=== PATIENT | female | born 1955 | race Two or more races ===

== ENCOUNTER 2024-06-10 16:16 | Inpatient (IN) | payer OTHER ==
[~2024-06-10] VITALS: Ht 165.1 cm; Wt 63.5 kg
[2024-06-10] MEDS ORDERED: CHILDREN'S ASPI81 MG (16:24)
[2024-06-10 17:00] LABS: HEMATOCRIT 41.3 % (36.0-45.00); HEMOGLOBIN 14.4 g/dL (12.0-15.00); MEAN CORPUSCULAR HEMOGLOBIN 31.1 pg (27.00-32.0); PLATELET COUNT 211 K/uL (150-450); RED BLOOD COUNT 4.64 M/uL (4.00-6.00)
[2024-06-10] MEDS ORDERED: MINERAL OIL 30 ML BLIST.PACK PO ONE (17:00)
[2024-06-10] MEDS ORDERED: LACTULOSE 20 G/30 ML BLIST.PACK PO ONE (17:00)
[2024-06-10] MEDS ORDERED: MAGNESIUM HYDROXIDE 30 ML BLIST.PACK PO ONE (17:00)
[2024-06-10 17:30] LABS: CALCIUM 9.7 mg/dL (8.5-10.1); CREATININE SERUM 0.9 mg/dL (0.55-1.02); GFR 62.45; POTASSIUM 3.91 mEq/L (3.5-5.1)
[2024-06-10 20:51] LABS: INR 1.04; PARTIAL THROMBOPLASTIN TIME 27.3 SECONDS (22.0-34.0); PROTHROMBIN TIME 11.3 SECONDS (9.0-11.5)
[2024-06-10] MEDS ORDERED: 0.9 % SODIUM CHLORIDE 1,000 ML IV SCH (22:15)
[2024-06-10] MEDS ORDERED: ACETAMINOPHEN 500 MG GEL..CAP PO PRN (22:30)
[2024-06-10] MEDS ORDERED: MEPERIDINE HCL/PF 25 MG/ML VIAL IM PRN (22:30)
[2024-06-10] MEDS ORDERED: ONDANSETRON HCL 4 MG in 0.9 % SODIUM CHLORIDE 50 ML IV PRN (22:30)
[2024-06-10 23:00] VITALS: BP 133/72; O2SAT 99
[2024-06-11 00:40] VITALS: BP 133/72
[2024-06-11 00:42] LABS: URINE APPEARANCE Clear; URINE BILIRRUBIN Negative (NEGATIVE); URINE BLOOD Trace; URINE COLOR Yellow; URINE GLUCOSE Negative (NEGATIVE); URINE KETONE Negative (NEGATIVE); URINE LEUKOCYTE Small; URINE NITRATE Negative; URINE PROTEIN Negative (NEGATIVE); URINE UROBILINOGEN 0.2 E.U./dl
[2024-06-11 00:46] LABS: URINE BACTERIA 40.2 uL (0.0-1933); URINE RBC 9.4 uL (0.0-20.8); URINE WBC 9.2 uL (0.0-23.2)
[2024-06-11 02:20] VITALS: BP 141/76; O2SAT 100
[2024-06-11] MEDS ORDERED: MINERAL OIL 133 ML ENEMA RECTAL NR (07:30)
[2024-06-11 08:23] VITALS: BP 147/67; O2SAT 100
[2024-06-11] MEDS ORDERED: FAMOTIDINE/PF 20 MG in 0.9 % SODIUM CHLORIDE 8 ML IV PUSH SCH (09:00)
[2024-06-11] MEDS ORDERED: fentaNYL CITRATE 50 MCG/ML AMPUL IV ONE (11:45)
[2024-06-11] MEDS ORDERED: MIDAZOLAM HCL 2 MG/2 ML VIAL IV ONE (11:45)
[2024-06-11] MEDS ORDERED: DIPHENHYDRAMINE HCL 50 MG/ML VIAL 1ML IV NR (12:00)
[2024-06-11 16:53] VITALS: BP 120/54; O2SAT 96
[2024-06-12 00:32] VITALS: BP 123/58; O2SAT 97
[2024-06-12 07:30] VITALS: BP 139/65; O2SAT 100
[2024-06-12] MEDS ORDERED: METRONIDAZOLE500 MG PO (08:04)
[2024-06-12] MEDS ORDERED: CIPRO500 MG PO (08:04)
[2024-06-12] MEDS ORDERED: PEPCID AC20 MG PO (08:05)
[2024-06-12] MEDS ORDERED: CIPROFLOXACIN IN 5 % DEXTROSE 200 ML IV SCH (09:00)
[2024-06-12] MEDS ORDERED: METRONIDAZOLE/SODIUM CHLORIDE 100 ML IV SCH (09:00)
== END 2024-06-12 13:16 | disposition home or self-care (01) | DRG 390 ==
LOC: ER 16:17 → SURG 22:18
PROVIDERS: General Practice; ADMIT Surgery; ATTEND Surgery
PROC: 0DJD8ZZ Inspection of Lower Intestinal Tract, Via Natural or Artificial Opening Endoscopic (ICD-10-PCS; principal; 2024-06-11)
DX: K56.41 Fecal impaction (principal); K64.8 Other hemorrhoids; I34.1 Nonrheumatic mitral (valve) prolapse